=== PATIENT | female | born 1995 | race Caucasian/White ===

== ENCOUNTER → 2017-06-28 | Outpatient (CLI) | payer OTHER ==
--- NOTE | 2017-06-28 15:54 | RADIOLOGY IMAGING REPORT ---
FACILITY: [facility] PATIENT NAME: WENDY MORRIS : [id number] MR: [id number] V: [id number] EXAM DATE: ORDERING PHYSICIAN: <UNSPECIFIED> TECHNOLOGIST: Pily Arceo PROCEDURE:US RIGHT BREAST COMPARISON:None. INDICATIONS:Palpable pea sized lump 2 o'clock position Right breast FINDINGS: One antiradial image 2 o'clock position of the Right breast with a stand off pad there was a 2.2mm tiny hypoechoic region seen just beneath the skin with no acoustic shadowing. This is in the location of the patient's palpable finding. This could represent a tiny sebaceous cyst. Clinical follow up recommended for patient's palpable finding. DIAGNOSTIC CATEGORY 2--BENIGN FINDING. RECOMMENDATIONS: CLINICAL EVALUATION. IMPRESSION: BIRADS 2: Benign finding. Possible tiny 2.2mm sebaceous cyst just beneath the skin 2 o'clock position of the Right breast. Clinical follow up recommended for patient's palpable findings. Dictated by: Nicole Roblero M.D. on 06/28/2017 at 15:45 Transcribed by: CHIDI on 06/28/2017 at 15:51 Approved by: Nicole Roblero M.D. on 06/28/2017 at 15:53 [facility]
== END ==
LOC: US 14:46
PROVIDERS: ATTEND Nurse Practitioner Family
DX: N63.12 Unspecified lump in the right breast, upper inner quadrant (principal)